=== PATIENT | female | born 1985 | race Caucasian/White ===

== ENCOUNTER 2017-12-06 17:46 | Emergency (ER) | payer MEDICARE, MEDICAID ==
[~2017-12-06] VITALS: Ht 157.5 cm; Wt 101.2 kg
[2017-12-06 18:02] VITALS: BP 120/75
== END 2017-12-06 20:19 | disposition home or self-care (01) ==
LOC: ED 20:10
DX: M25.561 Pain in right knee (principal)
CPT/HCPCS: 99284